=== PATIENT | male | born 1965 | race African-American/Black ===

== ENCOUNTER 2017-02-22 13:14 | Inpatient (IN) | payer OTHER ==
[2017-02-22 15:00] VITALS: BMI 53.5
--- NOTE | 2017-02-22 16:02 | HP ---
Admission [facility] - [facility] Chief Complaint: I need help to stop drinking . Allergies/Adverse Reactions: Allergies Allergy/AdvReac Type Severity Reaction Status Date / Time Tetanus Vaccines and Toxoid Allergy Severe Swelling Verified 02/22/17 15:28 History of Present Illness: 51 y/o obese m pt aox3 , ambulating , cooperative with exam. Exam Limitations: No Limitations - Ebola screening Have you traveled outside of the country in the last 21 days: No Have you had contact with anyone from an Ebola affected area: No Have you been sick,other than usual withdrawal symptoms: No Do you have a fever: No - Review of Systems Constitutional: Malaise, Night Sweats, Changes in sleep EENT: reports: Blurred Vision Respiratory: reports: No Symptoms reported Cardiac: reports: No Symptoms Reported GI: reports: No Symptoms Reported : reports: Frequency Musculoskeletal: reports: Back Pain, Muscle Pain Integumentary: reports: No Symptoms Reported Neuro: reports: Seizure, Tremors Endocrine: reports: No Symptoms Reported Hematology: reports: No Symptoms Reported Psychiatric: reports: Depressed Other Systems: Reviewed and Negative Patient History - Patient Medical History Hx Anemia: No Hx Asthma: Yes Hx Chronic Obstructive Pulmonary Disease (COPD): No Hx Cancer: No Hx Cardiac Disorders: No Hx Congestive Heart Failure: No Hx Hypertension: Yes Hx Hypercholesterolemia: No Hx Pacemaker: No HX Cerebrovascular Accident: No Hx Seizures: Yes (head trauma 25 yrs ago and had a seizures.) Hx Dementia: No Hx Diabetes: No Hx Gastrointestinal Disorders: No Hx Liver Disease: No Hx Genitourinary Disorders: No Hx Sexually Transmitted Disorders: No Hx Renal Disease (ESRD): No Hx Thyroid Disease: No Hx Human Immunodeficiency Virus (HIV): Yes (dx'ed 1996) Hx Hepatitis C: No Hx Depression: Yes Hx Suicide Attempt: No Hx Bipolar Disorder: No Hx Schizophrenia: No Other Medical History: gout - Patient Surgical History Past Surgical History: Yes Hx Abdominal Surgery: Yes (hernia surgeries x 2 ) Hx Orthopedic Surgery: Yes (fx R leg x 2 Sx for osteomelitis x2 R leg) Other Surgical History: left middle finger reattachment Anesthesia Reaction: Yes - PPD History Previous Implant?: Yes Documented Results: Positive w/o proof Implanted On Prior [facility] Admission?: No PPD to be Administered?: No - Reproductive History Patient is a Female of Child Bearing Age (11 -55 yrs old): No - Smoking Cessation Smoking history: Current some day smoker Have you smoked in the past 12 months: Yes Aproximately how many cigarettes per day: 5 Hx Chewing Tobacco Use: No Initiated information on smoking cessation: Yes 'Breaking Loose' booklet given: 02/22/17 - Substance & Tx. History Hx Alcohol Use: Yes Hx Substance Use: Yes Substance Use Type: Cocaine Hx Substance Use Treatment: Yes - Substances Abused Alcohol Route: Oral Frequency: Daily Amount used: 1 LITER VODKA/RUM/CHERRI/ 4 LOCOS Age of first use: 8 Date of Last Use: 02/22/17 Cocaine Route: Smoking Frequency: 1-3 times last 30 days Amount used: UNKNOWN Age of first use: 51 Date of Last Use: 02/21/17 Family Disease History - Family Disease History Family Disease History: Other: Mother (cirrhosis - ) Admission Physical Exam BHS - Vital Signs Vital Signs: Vital Signs - 24 hr 02/22/17 14:58 Temperature 98.4 F Pulse Rate 101 H Respiratory 18 Rate Blood Pressure 145/100 51 y/o morbidly obese pt anxious , ambulating , sweating but cooperative with exam. - Physical General Appearance: Yes: Appropriately Dressed, Obese, Sweating, Anxious HEENTM: Yes: EOMI, Hearing grossly Normal, Normocephalic, Normal Voice, MICHELL, Nasal Congestion Respiratory: Yes: Chest Non-Tender, Lungs Clear, Normal Breath Sounds, No Respiratory Distress Neck: Yes: Supple, Trachea in good position Breast: Yes: Within Normal Limits Cardiology: Yes: Regular Rhythm, Regular Rate, S1, S2 Abdominal: Yes: Non Tender, Flat, Soft, Increased Bowel Sounds, Surgical Scar ( well healed umbilical scars x 2) Genitourinary: Yes: Frequency Back: Yes: Decreased Range of Motion Musculoskeletal: Yes: Muscle Pain Extremities: Yes: Tremors Neurological: Yes: service advocate contact II-XII NML intact, Fully Oriented, Alert, Motor Strength 5/5, Normal Response Integumentary: Yes: Diaphoresis Lymphatic: Yes: Within Normal Limits - Diagnostic (1) Alcohol dependence with uncomplicated withdrawal Current Visit: Yes Status: Chronic (2) Cocaine abuse Current Visit: Yes Status: Acute (3) Morbid obesity Current Visit: Yes Status: Chronic (4) HIV (human immunodeficiency virus infection) Current Visit: Yes Status: Chronic (5) HTN (hypertension) Current Visit: Yes Status: Chronic Qualifiers: Hypertension type: essential hypertension Qualified Code(s): I10 - Essential (primary) hypertension (6) Sleep apnea Current Visit: Yes Status: Chronic Qualifiers: Sleep apnea type: unspecified type Qualified Code(s): G47.30 - Sleep apnea, unspecified (7) Gout Current Visit: Yes Status: Chronic Qualifiers: Gout site: unspecified site Cleared for Admission S - Detox or Rehab [facility] Level of Care: Medically Managed Detox Regimen/Protocol: Librium S Breath Alcohol Content Breath Alcohol Content: 0 Urine Drug Screen - Results Drug Screen Negative: No Urine Drug Screen Results: MARIA ELENA-Cocaine
[2017-02-22] MEDS ORDERED: P-EPHED 60MG/TRIPROLIDI 2.5MG TABLET PO PRN (16:16)
[2017-02-22] MEDS ORDERED: ACETAMINOPHEN 325 MG TABLET (FP) PO PRN (16:16)
[2017-02-22] MEDS ORDERED: LOPERAMIDE HCL 2 MG CAPSULE PO PRN (16:16)
[2017-02-22] MEDS ORDERED: diphenhydrAMINE HCL 50 MG CAPSULE PO PRN (16:16)
[2017-02-22] MEDS ORDERED: IBUPROFEN 400 MG TABLET (FP) PO PRN (16:16)
[2017-02-22] MEDS ORDERED: MAGNESIUM HYDROX 2400MG/30ML ORAL SUSPENSION 30 ML CUP PO PRN (16:16)
[2017-02-22] MEDS ORDERED: MAG HYDROX/AL HYDROX/SIMETH 30 ML UNIT-DOSE CUP PO PRN (16:16)
[2017-02-22] MEDS ORDERED: MAGNESIUM CITRATE 300 ML BOTTLE PO PRN (16:16)
[2017-02-22] MEDS ORDERED: guaiFENesin/D-METHORPHAN HB 10 ML UNIT-DOSE CUPS PO PRN (16:16)
[2017-02-22] MEDS ORDERED: MENTHOL/PHENOL 1 EACH UD MM PRN (16:16)
[2017-02-22] MEDS ORDERED: chlordiazePOXIDE HCL 25 MG CAPSULE PO PRN (16:16)
[2017-02-22] MEDS: chlordiazePOXIDE HCL 25 MG CAPSULE PO SCH ×2 (19:12→22:16)
[2017-02-22] MEDS ORDERED: NAPROXEN 500 MG TABLET (FP) PO SCH (22:00)
[2017-02-22] MEDS: THIAMINE HCL 100 MG TABLET (FP) PO SCH (22:15)
[2017-02-22 23:18] LABS: URINE APPEARANCE SLCLOUDY; URINE BILIRUBIN NEGATIVE (NEGATIVE); URINE COLOR DKYELLOW; URINE GLUCOSE (UA) NEGATIVE (NEGATIVE); URINE KETONE NEGATIVE (NEGATIVE); URINE NITRITE NEGATIVE (NEGATIVE); URINE UROBILINOGEN NEGATIVE E.U./dl (0.2-1.0)
[2017-02-22 23:24] LABS: URINE BLOOD 1+ (NEGATIVE); URINE LEUK ESTERASE 3+ (NEGATIVE); URINE PROTEIN 2+ (NEGATIVE)
[2017-02-22 23:28] LABS: URINE BACTERIA RARE /hpf (NONE SEEN); URINE HYALINE CAST 1 /lpf; URINE MUCUS RARE; URINE RBC 14 /hpf (0-3); URINE WBC 209 /hpf (3-5)
[2017-02-23] MEDS: chlordiazePOXIDE HCL 25 MG CAPSULE PO SCH ×4 (05:18→22:19)
[2017-02-23] MEDS: IBUPROFEN 600 MG TABLET (FP) PO PRN ×3 (07:45→22:20)
[2017-02-23] MEDS: CYCLOBENZAPRINE HCL 10 MG TABLET (FP) PO PRN ×3 (07:45→22:19)
[2017-02-23] MEDS ORDERED: BACITRACIN 0.9 GM PACKET ONE (08:20)
--- NOTE | 2017-02-23 09:29 | PN ---
BHS CIWA - CIWA Score Nausea/Vomitin Muscle Tremors: 3 Anxiety: 3 Agitation: 3 Paroxysmal Sweats: 1-Minimal Palms Moist Orientation: 0-Oriented Tacttile Disturbances: 1-Very Mild Itch/Numbness Auditory Disturbances: 1-Very Mild Visual Disturbances: 1-Very Mild Sensitivity Headache: 2-Mild CIWA-Ar Total Score: 18 BHS Progress Note (SOAP) Subjective: ALERT,IRRITABLE,ANXIOUS,INTERRUPTED SLEEP,TREMOR.RASH OF FACE Objective: 02/23/17 09:27 Vital Signs Temperature 96 F L 02/23/17 06:23 Pulse Rate 85 02/23/17 06:23 Respiratory Rate 18 02/23/17 06:23 Blood Pressure 153/96 02/23/17 06:23 O2 Sat by Pulse Oximetry (%) EKG SINUS TACHYCARDIA NO CHEST PAIN,NO SOB,NO DIZZINESS 02/23/17 09:28 LABS PENDING Assessment: 02/23/17 09:28 02/23/17 09:28 WITHDRAWAL SYMPTOM Plan: CONTINUE DETOX
[2017-02-23 10:11] LABS: MCH 28.4 pg (25.7-33.7); MCHC 32.9 g/dl (32.0-35.9); MEAN CELL VOLUME 86.4 fl (80-96); MEAN PLT VOLUME 10.4 fl (7.5-11.1); PLATELET COUNT 196 K/MM3 (134-434); RDW 14.6 % (11.9-15.9); WHITE BLOOD COUNT 6.9 K/mm3 (4.0-10.0)
[2017-02-23] MEDS: BENZOYL PEROXIDE 5% 60 GM GEL..GRAM. TP SCH (10:12)
[2017-02-23] MEDS: COLCHICINE 0.6 MG TABLET (FP) PO SCH (10:12)
[2017-02-23] MEDS: FUROSEMIDE 20 MG TABLET (FP) PO SCH (10:13)
[2017-02-23] MEDS: ALLOPURINOL 300 MG TABLET (FP) PO SCH (10:13)
[2017-02-23] MEDS: LOSARTAN POTASSIUM 50 MG TABLET (FP) PO SCH (10:13)
[2017-02-23] MEDS: BACITRACIN 30 GM TUBE TOPICAL OINTMENT TP SCH ×2 (10:13→22:19)
[2017-02-23] MEDS: NICOTINE 7 MG/24 HOURS TOPICAL PATCH TD SCH (10:13)
[2017-02-23] MEDS: PRENATAL VITAMINS W/ FOLIC ACID TABLET (FP) PO SCH (10:13)
[2017-02-23] MEDS: NIFEdipine E.R. 90 MG TABLET (FP) PO SCH (10:13)
[2017-02-23] MEDS: NICOTINE POLACRILEX 2 MG GUM BUC PRN ×2 (10:16→22:23)
[2017-02-23 10:26] LABS: ALBUMIN 3.6 g/dl (3.4-5.0); ALK PHOS 73 U/L (45-117); ANION GAP 13 (8-16); BILIRUBIN,TOTAL 0.6 mg/dL (0.2-1.0); CALCIUM 9.1 mg/dL (8.5-10.1); CO2 27 mmol/L (21-32); COCKROFT - GAULT 312.83; CREATININE 0.7 mg/dL (0.7-1.3); GLUCOSE,RANDOM 116 mg/dL (74-106); SGOT/AST 50 U/L (15-37); SGPT/ALT 65 U/L (12-78); TOT PROT 7.8 g/dl (6.4-8.2)
--- NOTE | 2017-02-23 12:48 | EKG ---
Test Reason : Blood Pressure : / mmHG Vent. Rate : 101 BPM Atrial Rate : 101 BPM P-R Int : 142 ms QRS Dur : 094 ms QT Int : 362 ms P-R-T Axes : 055 029 031 degrees QTc Int : 469 ms SINUS TACHYCARDIA POSSIBLE LEFT ATRIAL ENLARGEMENT BORDERLINE ECG NO PREVIOUS ECGS AVAILABLE Confirmed by CARTER CAMPOS, BRIANA ([id number]) on 02/23/2017 12:48:45 PM Referred By: Confirmed By:BRIANA MACHADO MD
--- NOTE | 2017-02-23 15:40 | CONSULT ---
[facility] Psychiatric Consult - Data Date of interview: 02/23/17 Admission source: [facility] Identifying data: First admission to [facility] for this 51 y/o AA male seeking detox treatment for alcohol and cocaine dependence.Patient is single without children,domiciled,unemployed (disabled) and supported on SSI benefits. Substance Abuse History: - Smoking Cessation. Smoking history: Current some day smoker. Have you smoked in the past 12 months: Yes. Aproximately how many cigarettes per day: 5. Hx Chewing Tobacco Use: No. Initiated information on smoking cessation: Yes. 'Breaking Loose' booklet given: 02/22/17. - Substance & Tx. History. Hx Alcohol Use: Yes. Hx Substance Use: Yes. Substance Use Type : Cocaine. Hx Substance Use Treatment: Yes. - Substances Abused. Alcohol. Route: Oral. Frequency: Daily. Amount used: 1 LITER VODKA/RUM/CHERRI/ 4 LOCOS. Age of first use: 8. Date of Last Use: 02/22/17. Cocaine. Route: Smoking. Frequency: 1-3 times last 30 days. Amount used: UNKNOWN. Age of first use: 51. Date of Last Use: 02/21/17. Confirmed by patient. Medical History: Hypertension,bronchial asthma,sleep apnea,seizure disorder ( head trauma),gout,HIV infection since 1996,past treatment for osteomyelitis ( right leg),herniorraphies (x2),orthosurgery for fracture of right leg and surgical reattachment of left middle finger.Morbid obesity. Psychiatric History: Patient admits to a history of one psychiatric hospitalization at [facility] in [facility] (2016).Diagnosed with MDD.Mr Carver denies taking psychotropic medications.No psychiatric OPD care.Patient denies suicide attempts. Physical/Sexual Abuse/Trauma History: Patient denies. Additional Comment: Urine Drug Screen Results: MARIA ELENA-Cocaine.Noted. Mental Status Exam - Mental Status Exam Alert and Oriented to: Time, Place, Person Cognitive Function: Grossly Intact Patient Appearance: Well Groomed (morbidly obese) Mood: Withdrawn (neutral) Affect: Appropriate, Normal Range Patient Behavior: Fatigued (feels sleepy), Cooperative Speech Pattern: Clear, Appropriate Voice Loudness: Normal Thought Process: Goal Oriented Thought Disorder: Not Present Hallucinations: Denies Suicidal Ideation: Denies Homicidal Ideation: Denies Insight/Judgement: Poor Sleep: Poorly, Difficulty falling asleep (patient reports poor sleep for past three days) Appetite: Good Gait/Station: Normal (observed walking on the unit) Psychiatric Findings - Problem List ([place] 1, 2,3) (1) Alcohol dependence with uncomplicated withdrawal Current Visit: Yes Status: Acute (2) Nicotine dependence Current Visit: Yes Status: Acute (3) Cocaine abuse Current Visit: Yes Status: Acute (4) Substance induced mood disorder Current Visit: Yes Status: Acute (5) Gout Current Visit: Yes Status: Chronic Qualifiers: Gout site: unspecified site (6) HIV (human immunodeficiency virus infection) Current Visit: Yes Status: Chronic (7) HTN (hypertension) Current Visit: Yes Status: Chronic Qualifiers: Hypertension type: essential hypertension Qualified Code(s): I10 - Essential (primary) hypertension (8) Sleep apnea Current Visit: Yes Status: Chronic Qualifiers: Sleep apnea type: unspecified type Qualified Code(s): G47.30 - Sleep apnea, unspecified (9) Insomnia Current Visit: Yes Status: Acute Qualifiers: Insomnia type: due to other mental disorder Qualified Code(s): F51.05 - Insomnia due to other mental disorder; F99 - Mental disorder, not otherwise specified - Initial Treatment Plan Initial Treatment Plan: Psychoeducation.Detoxification.Insomnia is addressed with benadryl at bedtime.Side effects/benefits discussed.Patient is in agreement with careplan.Observation.
[2017-02-23] MEDS: THIAMINE HCL 100 MG TABLET (FP) PO SCH (22:21)
[2017-02-23] MEDS: POTASSIUM CHLORIDE ORAL LIQUID 20 MEQ/15 ML PO SCH (22:53)
[2017-02-24] MEDS ORDERED: ALBUTEROL SO4 2.5/IPRATROPIUM 0.5 INH SOL 3 ML VIAL.NEB. NEB ONE (01:55)
[2017-02-24] MEDS: chlordiazePOXIDE HCL 25 MG CAPSULE PO SCH ×2 (06:09→10:15)
[2017-02-24] MEDS: IBUPROFEN 600 MG TABLET (FP) PO PRN ×2 (06:10→17:21)
[2017-02-24] MEDS: CYCLOBENZAPRINE HCL 10 MG TABLET (FP) PO PRN ×2 (06:10→22:20)
[2017-02-24] MEDS: POTASSIUM CHLORIDE ORAL LIQUID 20 MEQ/15 ML PO SCH ×2 (10:14→22:19)
[2017-02-24] MEDS: FUROSEMIDE 20 MG TABLET (FP) PO SCH (10:15)
[2017-02-24] MEDS: NIFEdipine E.R. 90 MG TABLET (FP) PO SCH (10:15)
[2017-02-24] MEDS: COLCHICINE 0.6 MG TABLET (FP) PO SCH (10:15)
[2017-02-24] MEDS: PRENATAL VITAMINS W/ FOLIC ACID TABLET (FP) PO SCH (10:16)
[2017-02-24] MEDS: LOSARTAN POTASSIUM 50 MG TABLET (FP) PO SCH (10:16)
[2017-02-24] MEDS: ALLOPURINOL 300 MG TABLET (FP) PO SCH (10:16)
[2017-02-24] MEDS: NICOTINE 7 MG/24 HOURS TOPICAL PATCH TD SCH (10:17)
[2017-02-24] MEDS: NICOTINE POLACRILEX 2 MG GUM BUC PRN (10:17)
[2017-02-24] MEDS: BENZOYL PEROXIDE 5% 60 GM GEL..GRAM. TP SCH (10:37)
[2017-02-24] MEDS: BACITRACIN 30 GM TUBE TOPICAL OINTMENT TP SCH ×2 (10:37→22:18)
--- NOTE | 2017-02-24 12:38 | PN ---
S CIWA - CIWA Score Nausea/Vomitin Muscle Tremors: 3 Anxiety: 1-Mildly Anxious Agitation: 3 Paroxysmal Sweats: 3 Orientation: 1-Uncertain about Date Tacttile Disturbances: 2-Mild Itch/Numbness/Burn Auditory Disturbances: 2-Mild Harshness/Frighten Visual Disturbances: 0-None Headache: 0-None Present CIWA-Ar Total Score: 18 BHS Progress Note (SOAP) Subjective: Nausea, body Aches, Sweating, Tremors, interrupted sleep. Objective: PT. A & OX 2 (DISORIENTED ABOUT DAY /DATE). PT. OBSERVED AMBULATING ON UNIT. 02/24/17 12:36 Vital Signs Temperature 96.8 F L 02/24/17 09:18 Pulse Rate 95 H 02/24/17 09:18 Respiratory Rate 20 02/24/17 09:18 Blood Pressure 123/78 02/24/17 09:18 O2 Sat by Pulse Oximetry (%) Laboratory Last Values WBC 6.9 K/mm3 (4.0-10.0) 02/23/17 07:00 RBC 4.78 M/mm3 (4.00-5.60) 02/23/17 07:00 Hgb 13.6 GM/dL (11.7-16.9) 02/23/17 07:00 Hct 41.3 % (35.4-49) 02/23/17 07:00 MCV 86.4 fl (80-96) 02/23/17 07:00 MCHC 32.9 g/dl (32.0-35.9) 02/23/17 07:00 RDW 14.6 % (11.9-15.9) 02/23/17 07:00 Plt Count 196 K/MM3 (134-434) 02/23/17 07:00 MPV 10.4 fl (7.5-11.1) 02/23/17 07:00 Sodium 139 mmol/L (136-145) 02/23/17 07:00 Potassium 3.3 mmol/L (3.5-5.1) L 02/23/17 07:00 Chloride 99 mmol/L (98-107) 02/23/17 07:00 Carbon Dioxide 27 mmol/L (21-32) 02/23/17 07:00 Anion Gap 13 (8-16) 02/23/17 07:00 BUN 13 mg/dL (7-18) 02/23/17 07:00 Creatinine 0.7 mg/dL (0.7-1.3) 02/23/17 07:00 Creat Clearance w eGFR > 60 (>60) 02/23/17 07:00 Random Glucose 116 mg/dL (74-106) H 02/23/17 07:00 Calcium 9.1 mg/dL (8.5-10.1) 02/23/17 07:00 Total Bilirubin 0.6 mg/dL (0.2-1.0) 02/23/17 07:00 AST 50 U/L (15-37) H 02/23/17 07:00 ALT 65 U/L (12-78) 02/23/17 07:00 Alkaline Phosphatase 73 U/L (45-117) 02/23/17 07:00 Total Protein 7.8 g/dl (6.4-8.2) 02/23/17 07:00 Albumin 3.6 g/dl (3.4-5.0) 02/23/17 07:00 Urine Color Dkyellow 02/22/17 23:00 Urine Appearance Slcloudy 02/22/17 23:00 Urine pH 6.0 (5.0-8.0) 02/22/17 23:00 Ur Specific [place] 1.020 (1.005-1.025) 02/22/17 23:00 Urine Protein 2+ (NEGATIVE) H 02/22/17 23:00 Urine Glucose (UA) Negative (NEGATIVE) 02/22/17 23:00 Urine Ketones Negative (NEGATIVE) 02/22/17 23:00 Urine Blood 1+ (NEGATIVE) H 02/22/17 23:00 Urine Nitrite Negative (NEGATIVE) 02/22/17 23:00 Urine Bilirubin Negative (NEGATIVE) 02/22/17 23:00 Urine Urobilinogen Negative E.U./dl (0.2-1.0) 02/22/17 23:00 Ur Leukocyte Esterase 3+ (NEGATIVE) H 02/22/17 23:00 Urine RBC 14 /hpf (0-3) 02/22/17 23:00 Urine WBC 209 /hpf (3-5) 02/22/17 23:00 Ur Epithelial Cells Few /hpf (FEW) 02/22/17 23:00 Urine Bacteria Rare /hpf (NONE SEEN) 02/22/17 23:00 Hyaline Casts 1 /lpf 02/22/17 23:00 Urine Mucus Rare 02/22/17 23:00 RPR Titer Nonreactive (NONREACTIVE) 02/23/17 07:00 LABS NOTED. Assessment: 02/24/17 12:38 WITHDRAWAL SYMPTOMS. 02/24/17 12:40 Plan: CONTINUE DETOX. ADVISED PATIENT TO FOLLOW-UP WITH NAVIGATION OFFICER AFTER DISCHARGE FROM DETOX FOR GENERAL MEDICAL ASSESSMENT AND FOR ABNORMAL ADMISSION LAB VALUES.
[2017-02-24] MEDS: chlordiazePOXIDE 5 MG CAPSULE PO SCH ×2 (17:19→22:18)
[2017-02-24] MEDS: THIAMINE HCL 100 MG TABLET (FP) PO SCH (22:18)
[2017-02-24] MEDS: hydrOXYzine PAMOATE 25 MG CAPSULE (FP) PO PRN (22:22)
[2017-02-24] MEDS ORDERED: ALBUTEROL SO4 2.5/IPRATROPIUM 0.5 INH SOL 3 ML VIAL.NEB. NEB PRN (23:43)
[2017-02-25] MEDS: chlordiazePOXIDE 5 MG CAPSULE PO SCH ×2 (06:53→10:25)
[2017-02-25] MEDS: BENZOYL PEROXIDE 5% 60 GM GEL..GRAM. TP SCH (10:26)
[2017-02-25] MEDS: COLCHICINE 0.6 MG TABLET (FP) PO SCH (10:26)
[2017-02-25] MEDS: FUROSEMIDE 20 MG TABLET (FP) PO SCH (10:26)
[2017-02-25] MEDS: ALLOPURINOL 300 MG TABLET (FP) PO SCH (10:26)
[2017-02-25] MEDS: PRENATAL VITAMINS W/ FOLIC ACID TABLET (FP) PO SCH (10:26)
[2017-02-25] MEDS: NICOTINE 7 MG/24 HOURS TOPICAL PATCH TD SCH (10:26)
[2017-02-25] MEDS: POTASSIUM CHLORIDE ORAL LIQUID 20 MEQ/15 ML PO SCH ×2 (10:26→22:18)
[2017-02-25] MEDS: NIFEdipine E.R. 90 MG TABLET (FP) PO SCH (10:26)
[2017-02-25] MEDS: LOSARTAN POTASSIUM 50 MG TABLET (FP) PO SCH (10:26)
[2017-02-25] MEDS: BACITRACIN 30 GM TUBE TOPICAL OINTMENT TP SCH ×2 (10:26→22:19)
[2017-02-25 10:33] LABS: ALBUMIN 3.6 g/dl (3.4-5.0); ALK PHOS 87 U/L (45-117); ANION GAP 7 (8-16); BILIRUBIN,TOTAL 0.3 mg/dL (0.2-1.0); CALCIUM 9.4 mg/dL (8.5-10.1); CO2 31 mmol/L (21-32); COCKROFT - GAULT 312.83; CREATININE 0.7 mg/dL (0.7-1.3); GLUCOSE,RANDOM 146 mg/dL (74-106); SGOT/AST 46 U/L (15-37); SGPT/ALT 83 U/L (12-78); TOT PROT 8.1 g/dl (6.4-8.2)
--- NOTE | 2017-02-25 13:05 | PN ---
S Progress Note (SOAP) Subjective: Tremors, Fatigue, Sweating, Body aches, Interrupted sleep. Objective: PT. A & O X 2 (DISORIENTED ABOUT DAY / DATE). PATIENT DENIES CHEST PAIN. 02/25/17 13:02 Vital Signs Temperature 96.2 F L 02/25/17 10:05 Pulse Rate 91 H 02/25/17 10:05 Respiratory Rate 18 02/25/17 10:05 Blood Pressure 152/93 02/25/17 10:05 O2 Sat by Pulse Oximetry (%) Laboratory Last Values WBC 6.9 K/mm3 (4.0-10.0) 02/23/17 07:00 RBC 4.78 M/mm3 (4.00-5.60) 02/23/17 07:00 Hgb 13.6 GM/dL (11.7-16.9) 02/23/17 07:00 Hct 41.3 % (35.4-49) 02/23/17 07:00 MCV 86.4 fl (80-96) 02/23/17 07:00 MCHC 32.9 g/dl (32.0-35.9) 02/23/17 07:00 RDW 14.6 % (11.9-15.9) 02/23/17 07:00 Plt Count 196 K/MM3 (134-434) 02/23/17 07:00 MPV 10.4 fl (7.5-11.1) 02/23/17 07:00 Sodium 140 mmol/L (136-145) 02/25/17 07:00 Potassium 4.4 mmol/L (3.5-5.1) D 02/25/17 07:00 Chloride 102 mmol/L (98-107) 02/25/17 07:00 Carbon Dioxide 31 mmol/L (21-32) 02/25/17 07:00 Anion Gap 7 (8-16) L 02/25/17 07:00 BUN 6 mg/dL (7-18) L D 02/25/17 07:00 Creatinine 0.7 mg/dL (0.7-1.3) 02/25/17 07:00 Creat Clearance w eGFR > 60 (>60) 02/25/17 07:00 Random Glucose 146 mg/dL (74-106) H D 02/25/17 07:00 Calcium 9.4 mg/dL (8.5-10.1) 02/25/17 07:00 Total Bilirubin 0.3 mg/dL (0.2-1.0) D 02/25/17 07:00 AST 46 U/L (15-37) H 02/25/17 07:00 ALT 83 U/L (12-78) H D 02/25/17 07:00 Alkaline Phosphatase 87 U/L (45-117) 02/25/17 07:00 Total Protein 8.1 g/dl (6.4-8.2) 02/25/17 07:00 Albumin 3.6 g/dl (3.4-5.0) 02/25/17 07:00 Urine Color Dkyellow 02/22/17 23:00 Urine Appearance Slcloudy 02/22/17 23:00 Urine pH 6.0 (5.0-8.0) 02/22/17 23:00 Ur Specific [place] 1.020 (1.005-1.025) 02/22/17 23:00 Urine Protein 2+ (NEGATIVE) H 02/22/17 23:00 Urine Glucose (UA) Negative (NEGATIVE) 02/22/17 23:00 Urine Ketones Negative (NEGATIVE) 02/22/17 23:00 Urine Blood 1+ (NEGATIVE) H 02/22/17 23:00 Urine Nitrite Negative (NEGATIVE) 02/22/17 23:00 Urine Bilirubin Negative (NEGATIVE) 02/22/17 23:00 Urine Urobilinogen Negative E.U./dl (0.2-1.0) 02/22/17 23:00 Ur Leukocyte Esterase 3+ (NEGATIVE) H 02/22/17 23:00 Urine RBC 14 /hpf (0-3) 02/22/17 23:00 Urine WBC 209 /hpf (3-5) 02/22/17 23:00 Ur Epithelial Cells Few /hpf (FEW) 02/22/17 23:00 Urine Bacteria Rare /hpf (NONE SEEN) 02/22/17 23:00 Hyaline Casts 1 /lpf 02/22/17 23:00 Urine Mucus Rare 02/22/17 23:00 RPR Titer Nonreactive (NONREACTIVE) 02/23/17 07:00 LABS NOTED. 02/25/17 13:04 Assessment: 02/25/17 13:04 WITHDRAWAL SYMPTOMS. Plan: CONTINUE DETOX. PATIENT ADVISED TO FOLLOW-UP WITH FISH NET STRINGER AFTER DISCHARGE FROM DETOX FOR GENERAL MEDICAL ASSESSMENT AND FOR ABNORMAL ADMISSION LAB VALUES.
[2017-02-25] MEDS ORDERED: WITCH HAZEL 50% (TUCKS) 40 PAD/JAR PAD TP PRN (15:30)
[2017-02-25] MEDS ORDERED: HYDROCORTISONE 2.5% TOPICAL CREAM 30 GM TUBE PR SCH (15:45)
--- NOTE | 2017-02-25 17:05 | PN ---
[facility] Progress Note Note: Pt. reporting discomfort in anal area since having a bowel movement last night. Pt. also reports a small amount of blood (on toilet paper) after having the bowel movement. Pt. reports history of anal fissure for which he was previously treated with topical Proctosol. Patient denies abdominal pain and he denies any other unusual symptoms at this time. VS and CBC reviewed. No redness, lesions, unusual discharge, or signs of infection noted upon visualization of external anal and buttock area. Pt. noted that he was previously advised to use topical Bacitracin by [facility] admitting medical provider. However, pt. reports that Bacitracin has been ineffective for relief of anal discomfort. Anusol-HC and Tucks Medicated pads prescribed for symptom relief. Pt. advised to follow-up with Primary Care Medical Provider for further evaluation of condition after discharge from Detox. Pt. verbalized understanding of recommendation. Satish Kirk NP
[2017-02-25] MEDS: chlordiazePOXIDE HCL 10 MG CAPSULE PO SCH ×2 (17:36→22:17)
[2017-02-25] MEDS: NICOTINE POLACRILEX 2 MG GUM BUC PRN ×2 (17:39→22:22)
[2017-02-25] MEDS: IBUPROFEN 600 MG TABLET (FP) PO PRN ×2 (17:39→23:29)
[2017-02-25] MEDS ORDERED: cloNIDine HCL 0.1 MG TABLET PO PRN (22:03)
[2017-02-25 22:10] VITALS: BP 153/98; PULSE 94; TEMP 98.4
[2017-02-25] MEDS: CYCLOBENZAPRINE HCL 10 MG TABLET (FP) PO PRN (22:17)
[2017-02-25] MEDS: THIAMINE HCL 100 MG TABLET (FP) PO SCH (22:17)
[2017-02-25] MEDS: hydrOXYzine PAMOATE 25 MG CAPSULE (FP) PO PRN (22:20)
[2017-02-26] MEDS: chlordiazePOXIDE HCL 10 MG CAPSULE PO SCH (06:16)
--- NOTE | 2017-02-26 13:52 | DS ---
[facility] Detox Discharge Summary Admission Date: 02/22/17 Discharge Date: 02/26/17 - History Present History: Alcohol Dependence Additional Comments: ADVISED PATIENT TO FOLLOW-UP WITH [facility]EN[facility]SE [facility]OWER AFTER DISCHARGE FROM DETOX FOR GENERAL MEDICAL ASSESSMENT AND FOR ABNORMAL ADMISSION LAB VALUES. Pertinent Past History: Asthma, Hx. of Seizures (due to previous Head Trauma), HIV +, Sleep Apnea, Gout. - Physical Exam Results Vital Signs: Vital Signs Temperature 98.4 F 02/25/17 22:09 Pulse Rate 94 H 02/25/17 22:09 Respiratory Rate 20 02/26/17 03:30 Blood Pressure 153/98 02/25/17 22:09 O2 Sat by Pulse Oximetry (%) Pertinent Admission Physical Exam Findings: WITHDRAWAL SYMPTOMS. Laboratory Last Values WBC 6.9 K/mm3 (4.0-10.0) 02/23/17 07:00 RBC 4.78 M/mm3 (4.00-5.60) 02/23/17 07:00 Hgb 13.6 GM/dL (11.7-16.9) 02/23/17 07:00 Hct 41.3 % (35.4-49) 02/23/17 07:00 MCV 86.4 fl (80-96) 02/23/17 07:00 MCHC 32.9 g/dl (32.0-35.9) 02/23/17 07:00 RDW 14.6 % (11.9-15.9) 02/23/17 07:00 Plt Count 196 K/MM3 (134-434) 02/23/17 07:00 MPV 10.4 fl (7.5-11.1) 02/23/17 07:00 Sodium 140 mmol/L (136-145) 02/25/17 07:00 Potassium 4.4 mmol/L (3.5-5.1) D 02/25/17 07:00 Chloride 102 mmol/L (98-107) 02/25/17 07:00 Carbon Dioxide 31 mmol/L (21-32) 02/25/17 07:00 Anion Gap 7 (8-16) L 02/25/17 07:00 BUN 6 mg/dL (7-18) L D 02/25/17 07:00 Creatinine 0.7 mg/dL (0.7-1.3) 02/25/17 07:00 Creat Clearance w eGFR > 60 (>60) 02/25/17 07:00 Random Glucose 146 mg/dL (74-106) H D 02/25/17 07:00 Calcium 9.4 mg/dL (8.5-10.1) 02/25/17 07:00 Total Bilirubin 0.3 mg/dL (0.2-1.0) D 02/25/17 07:00 AST 46 U/L (15-37) H 02/25/17 07:00 ALT 83 U/L (12-78) H D 02/25/17 07:00 Alkaline Phosphatase 87 U/L (45-117) 02/25/17 07:00 Total Protein 8.1 g/dl (6.4-8.2) 02/25/17 07:00 Albumin 3.6 g/dl (3.4-5.0) 02/25/17 07:00 Urine Color Dkyellow 02/22/17 23:00 Urine Appearance Slcloudy 02/22/17 23:00 Urine pH 6.0 (5.0-8.0) 02/22/17 23:00 Ur Specific [place] 1.020 (1.005-1.025) 02/22/17 23:00 Urine Protein 2+ (NEGATIVE) H 02/22/17 23:00 Urine Glucose (UA) Negative (NEGATIVE) 02/22/17 23:00 Urine Ketones Negative (NEGATIVE) 02/22/17 23:00 Urine Blood 1+ (NEGATIVE) H 02/22/17 23:00 Urine Nitrite Negative (NEGATIVE) 02/22/17 23:00 Urine Bilirubin Negative (NEGATIVE) 02/22/17 23:00 Urine Urobilinogen Negative E.U./dl (0.2-1.0) 02/22/17 23:00 Ur Leukocyte Esterase 3+ (NEGATIVE) H 02/22/17 23:00 Urine RBC 14 /hpf (0-3) 02/22/17 23:00 Urine WBC 209 /hpf (3-5) 02/22/17 23:00 Ur Epithelial Cells Few /hpf (FEW) 02/22/17 23:00 Urine Bacteria Rare /hpf (NONE SEEN) 02/22/17 23:00 Hyaline Casts 1 /lpf 02/22/17 23:00 Urine Mucus Rare 02/22/17 23:00 RPR Titer Nonreactive (NONREACTIVE) 02/23/17 07:00 LABS NOTED. - Treatment Hospital Course: Detox Protocol Followed, Detoxed Safely, Responded well, Discharged Condition Good Patient has Accepted a Rehab Referral to: NO - PT. ELECTING TO GO HOME. WILL PURSUE REHAB AT LATER DATE. - Medication Discharge Medications: Ambulatory Orders Allopurinol 300 mg PO DAILY 02/22/17 Colchicine [Colcrys -] 0.6 mg PO DAILY 02/22/17 Furosemide [Lasix -] 20 mg PO DAILY 02/22/17 Losartan/Hydrochlorothiazide [Losartan-Hctz 100-25 mg Tab] 1 each PO DAILY 02/22 Naproxen [Naprosyn -] 500 mg PO BID 02/22/17 Nifedipine ER [Procardia Xl -] 90 mg PO DAILY 02/22/17 Tizanidine HCl [Zanaflex (Nf)] 4 mg PO QID 02/22/17 - Diagnosis (1) Alcohol dependence with uncomplicated withdrawal Status: Acute (2) Cocaine abuse Status: Acute (3) Insomnia Status: Chronic Qualifiers: Insomnia type: due to other mental disorder Qualified Code(s): F51.05 - Insomnia due to other mental disorder; F99 - Mental disorder, not otherwise specified (4) Nicotine dependence Status: Chronic Qualifiers: Nicotine product type: cigarettes Substance use status: uncomplicated Qualified Code(s): F17.210 - Nicotine dependence, cigarettes, uncomplicated (5) Substance induced mood disorder Status: Acute (6) Gout Status: Chronic Qualifiers: Gout site: unspecified site Chronicity: chronic (7) HIV (human immunodeficiency virus infection) Status: Chronic (8) HTN (hypertension) Status: Chronic Qualifiers: Hypertension type: essential hypertension Qualified Code(s): I10 - Essential (primary) hypertension (9) Morbid obesity Status: Chronic Qualifiers: Obesity type: unspecified obesity type Qualified Code(s): E66.01 - Morbid (severe) obesity due to excess calories (10) Sleep apnea Status: Chronic Qualifiers: Sleep apnea type: unspecified type Qualified Code(s): G47.30 - Sleep apnea, unspecified - AMA Did Patient Leave Against Medical Advice: No
== END 2017-02-26 09:41 | disposition home or self-care (01) | DRG 774 ==
LOC: YASAS 13:14 → Y3N 16:43
PROVIDERS: ADMIT Internal Medicine Addiction Medicine; ATTEND Internal Medicine Addiction Medicine
PROC: HZ2ZZZZ Detoxification Services for Substance Abuse Treatment (ICD-10-PCS; principal; 2017-02-26)
DX: F10.230 Alcohol dependence with withdrawal, uncomplicated (principal); F14.10 Cocaine abuse, uncomplicated; F17.210 Nicotine dependence, cigarettes, uncomplicated; F19.24 Other psychoactive substance dependence with psychoactive substance-induced mood disorder; Z21 Asymptomatic human immunodeficiency virus [HIV] infection status; I10 Essential (primary) hypertension; G47.30 Sleep apnea, unspecified; F51.05 Insomnia due to other mental disorder; M10.9 Gout, unspecified; E66.01 Morbid (severe) obesity due to excess calories; Z68.43 Body mass index [BMI] 50.0-59.9, adult
CPT/HCPCS: 36415; 71020-TC; 80053; 81003; 81015; 85027; 86593; 93005; 93010; 94640

== ENCOUNTER 2017-02-28 11:42 | Inpatient (IN) | payer OTHER ==
[2017-02-28] MEDS ORDERED: MAGNESIUM HYDROX 2400MG/30ML ORAL SUSPENSION 30 ML CUP PO PRN (18:00)
[2017-02-28] MEDS ORDERED: MENTHOL/PHENOL 1 EACH UD MM PRN (18:00)
[2017-02-28] MEDS ORDERED: IBUPROFEN 400 MG TABLET (FP) PO PRN (18:00)
[2017-02-28] MEDS ORDERED: LOPERAMIDE HCL 2 MG CAPSULE PO PRN (18:00)
[2017-02-28] MEDS ORDERED: P-EPHED 60MG/TRIPROLIDI 2.5MG TABLET PO PRN (18:00)
[2017-02-28] MEDS ORDERED: MAGNESIUM CITRATE 300 ML BOTTLE PO PRN (18:00)
--- NOTE | 2017-02-28 18:00 | HP ---
[facility] Rehab Assess/Revision - Admission History Admitted to Rehab from: [facility] (PT COMPLETED DETOX ON 3 02/22/17 TO ) Date of Admission to Rehab: 02/28/17 - Vital signs Vital Signs: Vital Signs Period Temp Pulse Resp BP Sys/Angulo Pulse Ox Last 24 Hr 97.5 F 76 20 147/94 - Findings Detox History & Physical reviewed: Yes Concur with findings: Yes Comments/Additional Findings: PT IS ALERT O X 3. NAD. DISCUSSED WITH MEDICAL ATTENDING MD AND PT CLEARED FOR REHAB ADMISSION. ADDENDUM: PT HAS HIS OWN CPAP MACHINE.
[2017-02-28] MEDS: THIAMINE HCL 100 MG TABLET (FP) PO SCH (22:03)
[2017-02-28] MEDS: diphenhydrAMINE HCL 50 MG CAPSULE PO PRN (22:04)
[2017-02-28 22:14] LABS: URINE APPEARANCE CLEAR; URINE BILIRUBIN NEGATIVE (NEGATIVE); URINE BLOOD NEGATIVE (NEGATIVE); URINE COLOR LTYELLOW; URINE GLUCOSE (UA) NEGATIVE (NEGATIVE); URINE KETONE NEGATIVE (NEGATIVE); URINE LEUK ESTERASE TRACE (NEGATIVE); URINE NITRITE NEGATIVE (NEGATIVE); URINE PROTEIN NEGATIVE (NEGATIVE); URINE UROBILINOGEN NEGATIVE E.U./dl (0.2-1.0)
[2017-02-28 22:23] LABS: URINE RBC 3 /hpf (0-3); URINE WBC 3 /hpf (3-5)
[2017-03-01] MEDS ORDERED: PATIENT'S OWN MEDICATION (NON-FORMULARY) (Losartan/Hydrochlorothiazide [Losartan-Hctz 100- PO SCH (10:00)
[2017-03-01] MEDS: NIFEdipine E.R. 90 MG TABLET (FP) PO SCH (11:02)
[2017-03-01] MEDS: PRENATAL VITAMINS W/ FOLIC ACID TABLET (FP) PO SCH (11:02)
[2017-03-01] MEDS: FUROSEMIDE 20 MG TABLET (FP) PO SCH (11:02)
[2017-03-01] MEDS: ALLOPURINOL 300 MG TABLET (FP) PO SCH (11:02)
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
[2017-03-01] MEDS ORDERED: TIZANIDINE HCL PO SCH (12:30)
[2017-03-01] MEDS: NICOTINE POLACRILEX 2 MG GUM BUC PRN ×2 (13:04→21:39)
[2017-03-01] MEDS: TIZANIDINE HCL PO SCH ×2 (15:29→21:36)
[2017-03-01] MEDS: HYDROCHLOROTHIAZIDE 25 MG TABLET (FP) PO SCH (17:00)
[2017-03-01] MEDS: LOSARTAN POTASSIUM 50 MG TABLET (FP) PO SCH (17:00)
[2017-03-01] MEDS: THIAMINE HCL 100 MG TABLET (FP) PO SCH (21:36)
[2017-03-01] MEDS: IBUPROFEN 400 MG TABLET (FP) PO PRN (21:38)
[2017-03-01] MEDS: diphenhydrAMINE HCL 50 MG CAPSULE PO PRN (21:38)
[2017-03-01] MEDS: ACETAMINOPHEN 325 MG TABLET (FP) PO PRN (23:37)
[2017-03-02] MEDS: TIZANIDINE HCL PO SCH ×4 (03:48→21:39)
[2017-03-02] MEDS: FUROSEMIDE 20 MG TABLET (FP) PO SCH (10:31)
[2017-03-02] MEDS: NIFEdipine E.R. 90 MG TABLET (FP) PO SCH (10:31)
[2017-03-02] MEDS: HYDROCHLOROTHIAZIDE 25 MG TABLET (FP) PO SCH (10:31)
[2017-03-02] MEDS: PRENATAL VITAMINS W/ FOLIC ACID TABLET (FP) PO SCH (10:31)
[2017-03-02] MEDS: ALLOPURINOL 300 MG TABLET (FP) PO SCH (10:31)
[2017-03-02] MEDS: LOSARTAN POTASSIUM 50 MG TABLET (FP) PO SCH (10:32)
[2017-03-02] MEDS: IBUPROFEN 400 MG TABLET (FP) PO PRN ×2 (10:34→16:46)
[2017-03-02] MEDS: NICOTINE POLACRILEX 2 MG GUM BUC PRN ×2 (10:35→21:44)
[2017-03-02] MEDS: THIAMINE HCL 100 MG TABLET (FP) PO SCH (21:39)
[2017-03-02] MEDS: ACETAMINOPHEN 325 MG TABLET (FP) PO PRN (21:42)
[2017-03-02] MEDS: diphenhydrAMINE HCL 50 MG CAPSULE PO PRN (21:54)
[2017-03-03] MEDS: TIZANIDINE HCL PO SCH ×5 (03:27→21:49)
[2017-03-03] MEDS: ACETAMINOPHEN 325 MG TABLET (FP) PO PRN (08:47)
[2017-03-03] MEDS: IBUPROFEN 400 MG TABLET (FP) PO PRN ×2 (08:48→21:52)
[2017-03-03] MEDS: NICOTINE POLACRILEX 2 MG GUM BUC PRN (08:51)
[2017-03-03] MEDS: LOSARTAN POTASSIUM 50 MG TABLET (FP) PO SCH (09:14)
[2017-03-03] MEDS: PRENATAL VITAMINS W/ FOLIC ACID TABLET (FP) PO SCH (09:14)
[2017-03-03] MEDS: FUROSEMIDE 20 MG TABLET (FP) PO SCH (09:14)
[2017-03-03] MEDS: ALLOPURINOL 300 MG TABLET (FP) PO SCH (09:14)
[2017-03-03] MEDS: HYDROCHLOROTHIAZIDE 25 MG TABLET (FP) PO SCH (09:14)
[2017-03-03] MEDS: NIFEdipine E.R. 90 MG TABLET (FP) PO SCH (09:15)
[2017-03-03] MEDS: HYDROCORTISONE 2.5% TOPICAL CREAM 30 GM TUBE PR SCH (21:49)
[2017-03-03] MEDS: THIAMINE HCL 100 MG TABLET (FP) PO SCH (21:49)
[2017-03-03] MEDS: diphenhydrAMINE HCL 50 MG CAPSULE PO PRN (21:50)
[2017-03-04] MEDS: NIFEdipine E.R. 90 MG TABLET (FP) PO SCH (10:28)
[2017-03-04] MEDS: LOSARTAN POTASSIUM 50 MG TABLET (FP) PO SCH (10:28)
[2017-03-04] MEDS: HYDROCHLOROTHIAZIDE 25 MG TABLET (FP) PO SCH (10:28)
[2017-03-04] MEDS: PRENATAL VITAMINS W/ FOLIC ACID TABLET (FP) PO SCH (10:28)
[2017-03-04] MEDS: FUROSEMIDE 20 MG TABLET (FP) PO SCH (10:28)
[2017-03-04] MEDS: ALLOPURINOL 300 MG TABLET (FP) PO SCH (10:28)
[2017-03-04] MEDS: HYDROCORTISONE 2.5% TOPICAL CREAM 30 GM TUBE PR SCH ×2 (10:28→21:50)
[2017-03-04] MEDS: TIZANIDINE HCL PO SCH ×4 (10:29→21:49)
[2017-03-04] MEDS: ACETAMINOPHEN 325 MG TABLET (FP) PO PRN ×2 (10:31→21:51)
[2017-03-04] MEDS: IBUPROFEN 400 MG TABLET (FP) PO PRN ×2 (10:32→21:51)
[2017-03-04] MEDS: THIAMINE HCL 100 MG TABLET (FP) PO SCH (21:49)
[2017-03-04] MEDS: diphenhydrAMINE HCL 50 MG CAPSULE PO PRN (21:50)
[2017-03-04] MEDS: NICOTINE POLACRILEX 2 MG GUM BUC PRN (21:53)
[2017-03-05] MEDS: IBUPROFEN 400 MG TABLET (FP) PO PRN (06:57)
[2017-03-05] MEDS: ACETAMINOPHEN 325 MG TABLET (FP) PO PRN (06:57)
[2017-03-05] MEDS: FUROSEMIDE 20 MG TABLET (FP) PO SCH (10:24)
[2017-03-05] MEDS: HYDROCHLOROTHIAZIDE 25 MG TABLET (FP) PO SCH (10:24)
[2017-03-05] MEDS: LOSARTAN POTASSIUM 50 MG TABLET (FP) PO SCH (10:24)
[2017-03-05] MEDS: NIFEdipine E.R. 90 MG TABLET (FP) PO SCH (10:24)
[2017-03-05] MEDS: ALLOPURINOL 300 MG TABLET (FP) PO SCH (10:24)
[2017-03-05] MEDS: PRENATAL VITAMINS W/ FOLIC ACID TABLET (FP) PO SCH (10:24)
[2017-03-05] MEDS: HYDROCORTISONE 2.5% TOPICAL CREAM 30 GM TUBE PR SCH ×2 (10:25→22:04)
[2017-03-05] MEDS: TIZANIDINE HCL PO SCH ×4 (10:25→22:04)
[2017-03-05] MEDS: NICOTINE POLACRILEX 2 MG GUM BUC PRN ×2 (10:27→22:06)
[2017-03-05] MEDS: THIAMINE HCL 100 MG TABLET (FP) PO SCH (22:04)
[2017-03-05] MEDS: diphenhydrAMINE HCL 50 MG CAPSULE PO PRN (22:06)
[2017-03-06] MEDS: IBUPROFEN 400 MG TABLET (FP) PO PRN ×3 (05:38→21:55)
[2017-03-06] MEDS: ACETAMINOPHEN 325 MG TABLET (FP) PO PRN ×2 (06:35→11:13)
[2017-03-06] MEDS: MAG HYDROX/AL HYDROX/SIMETH 30 ML UNIT-DOSE CUP PO PRN (09:05)
[2017-03-06] MEDS: LOSARTAN POTASSIUM 50 MG TABLET (FP) PO SCH (10:31)
[2017-03-06] MEDS: TIZANIDINE HCL PO SCH ×4 (10:31→21:52)
[2017-03-06] MEDS: PRENATAL VITAMINS W/ FOLIC ACID TABLET (FP) PO SCH (10:31)
[2017-03-06] MEDS: HYDROCHLOROTHIAZIDE 25 MG TABLET (FP) PO SCH (10:31)
[2017-03-06] MEDS: FUROSEMIDE 20 MG TABLET (FP) PO SCH (10:31)
[2017-03-06] MEDS: ALLOPURINOL 300 MG TABLET (FP) PO SCH (10:31)
[2017-03-06] MEDS: NIFEdipine E.R. 90 MG TABLET (FP) PO SCH (10:31)
[2017-03-06] MEDS: HYDROCORTISONE 2.5% TOPICAL CREAM 30 GM TUBE PR SCH ×2 (10:32→21:53)
[2017-03-06] MEDS: NICOTINE POLACRILEX 2 MG GUM BUC PRN ×2 (10:33→13:53)
[2017-03-06] MEDS: THIAMINE HCL 100 MG TABLET (FP) PO SCH (21:52)
[2017-03-06] MEDS: diphenhydrAMINE HCL 50 MG CAPSULE PO PRN (21:56)
[2017-03-07] MEDS: guaiFENesin/D-METHORPHAN HB 10 ML UNIT-DOSE CUPS PO PRN (06:41)
[2017-03-07] MEDS: IBUPROFEN 400 MG TABLET (FP) PO PRN ×3 (07:04→23:06)
[2017-03-07] MEDS: ALLOPURINOL 300 MG TABLET (FP) PO SCH (10:29)
[2017-03-07] MEDS: FUROSEMIDE 20 MG TABLET (FP) PO SCH (10:29)
[2017-03-07] MEDS: NIFEdipine E.R. 90 MG TABLET (FP) PO SCH (10:29)
[2017-03-07] MEDS: LOSARTAN POTASSIUM 50 MG TABLET (FP) PO SCH (10:29)
[2017-03-07] MEDS: HYDROCHLOROTHIAZIDE 25 MG TABLET (FP) PO SCH (10:30)
[2017-03-07] MEDS: TIZANIDINE HCL PO SCH ×4 (10:30→21:57)
[2017-03-07] MEDS: PRENATAL VITAMINS W/ FOLIC ACID TABLET (FP) PO SCH (10:30)
[2017-03-07] MEDS: HYDROCORTISONE 2.5% TOPICAL CREAM 30 GM TUBE PR SCH ×2 (10:30→21:57)
[2017-03-07] MEDS: ACETAMINOPHEN 325 MG TABLET (FP) PO PRN (10:31)
[2017-03-07] MEDS: NICOTINE POLACRILEX 2 MG GUM BUC PRN ×3 (10:32→22:00)
[2017-03-07] MEDS: THIAMINE HCL 100 MG TABLET (FP) PO SCH (21:57)
[2017-03-07] MEDS: diphenhydrAMINE HCL 50 MG CAPSULE PO PRN (21:59)
[2017-03-08] MEDS: HYDROCHLOROTHIAZIDE 25 MG TABLET (FP) PO SCH (10:32)
[2017-03-08] MEDS: NIFEdipine E.R. 90 MG TABLET (FP) PO SCH (10:32)
[2017-03-08] MEDS: ALLOPURINOL 300 MG TABLET (FP) PO SCH (10:32)
[2017-03-08] MEDS: FUROSEMIDE 20 MG TABLET (FP) PO SCH (10:32)
[2017-03-08] MEDS: HYDROCORTISONE 2.5% TOPICAL CREAM 30 GM TUBE PR SCH ×2 (10:37→21:36)
[2017-03-08] MEDS: LOSARTAN POTASSIUM 50 MG TABLET (FP) PO SCH (10:57)
[2017-03-08] MEDS: TIZANIDINE HCL PO SCH ×4 (10:58→21:36)
[2017-03-08] MEDS: PRENATAL VITAMINS W/ FOLIC ACID TABLET (FP) PO SCH (10:58)
[2017-03-08] MEDS: IBUPROFEN 400 MG TABLET (FP) PO PRN ×2 (11:01→21:37)
[2017-03-08] MEDS: MAG HYDROX/AL HYDROX/SIMETH 30 ML UNIT-DOSE CUP PO PRN (18:32)
[2017-03-08] MEDS: THIAMINE HCL 100 MG TABLET (FP) PO SCH (21:36)
[2017-03-08] MEDS: diphenhydrAMINE HCL 50 MG CAPSULE PO PRN (21:37)
[2017-03-08] MEDS: NICOTINE POLACRILEX 2 MG GUM BUC PRN (21:39)
[2017-03-08] MEDS: ACETAMINOPHEN 325 MG TABLET (FP) PO PRN (23:15)
[2017-03-09] MEDS: FUROSEMIDE 20 MG TABLET (FP) PO SCH (10:44)
[2017-03-09] MEDS: ALLOPURINOL 300 MG TABLET (FP) PO SCH (10:44)
[2017-03-09] MEDS: LOSARTAN POTASSIUM 50 MG TABLET (FP) PO SCH (10:44)
[2017-03-09] MEDS: HYDROCHLOROTHIAZIDE 25 MG TABLET (FP) PO SCH (10:44)
[2017-03-09] MEDS: IBUPROFEN 400 MG TABLET (FP) PO PRN ×2 (10:44→21:39)
[2017-03-09] MEDS: NIFEdipine E.R. 90 MG TABLET (FP) PO SCH (10:44)
[2017-03-09] MEDS: PRENATAL VITAMINS W/ FOLIC ACID TABLET (FP) PO SCH (10:44)
[2017-03-09] MEDS: TIZANIDINE HCL PO SCH ×4 (10:45→21:37)
[2017-03-09] MEDS: HYDROCORTISONE 2.5% TOPICAL CREAM 30 GM TUBE PR SCH ×2 (10:46→21:38)
[2017-03-09] MEDS: NICOTINE POLACRILEX 2 MG GUM BUC PRN ×2 (10:47→21:39)
[2017-03-09] MEDS ORDERED: BENZOYL PEROXIDE 5% 60 GM GEL..GRAM. TP ONE (14:01)
[2017-03-09] MEDS: BENZOYL PEROXIDE 5% 60 GM GEL..GRAM. TP SCH (17:48)
[2017-03-09] MEDS: THIAMINE HCL 100 MG TABLET (FP) PO SCH (21:37)
[2017-03-09] MEDS: diphenhydrAMINE HCL 50 MG CAPSULE PO PRN (21:38)
--- NOTE | 2017-03-09 23:21 | PN ---
[facility] Progress Note Note: received nurse informed that patient is constipated, last bowel movement encourage magnesium citrate 300 ml prn continue rehab
[2017-03-10] MEDS: LOSARTAN POTASSIUM 50 MG TABLET (FP) PO SCH (10:20)
[2017-03-10] MEDS: PRENATAL VITAMINS W/ FOLIC ACID TABLET (FP) PO SCH (10:20)
[2017-03-10] MEDS: NIFEdipine E.R. 90 MG TABLET (FP) PO SCH (10:20)
[2017-03-10] MEDS: FUROSEMIDE 40 MG TABLET (FP) PO SCH (10:21)
[2017-03-10] MEDS: HYDROCHLOROTHIAZIDE 25 MG TABLET (FP) PO SCH (10:21)
[2017-03-10] MEDS: TIZANIDINE HCL PO SCH ×4 (10:21→21:47)
[2017-03-10] MEDS: ALLOPURINOL 300 MG TABLET (FP) PO SCH (10:21)
[2017-03-10] MEDS: BENZOYL PEROXIDE 5% 60 GM GEL..GRAM. TP SCH (10:21)
[2017-03-10] MEDS: HYDROCORTISONE 2.5% TOPICAL CREAM 30 GM TUBE PR SCH ×2 (10:22→21:52)
[2017-03-10] MEDS: NICOTINE POLACRILEX 2 MG GUM BUC PRN ×3 (10:22→21:53)
[2017-03-10] MEDS: IBUPROFEN 400 MG TABLET (FP) PO PRN ×2 (10:23→21:50)
[2017-03-10] MEDS: ACETAMINOPHEN 325 MG TABLET (FP) PO PRN (14:22)
[2017-03-10] MEDS: guaiFENesin/D-METHORPHAN HB 10 ML UNIT-DOSE CUPS PO PRN (14:22)
[2017-03-10] MEDS: THIAMINE HCL 100 MG TABLET (FP) PO SCH (21:47)
[2017-03-10] MEDS: diphenhydrAMINE HCL 50 MG CAPSULE PO PRN (21:50)
[2017-03-11] MEDS: ACETAMINOPHEN 325 MG TABLET (FP) PO PRN (03:11)
[2017-03-11] MEDS ORDERED: hydrOXYzine PAMOATE 50 MG CAPSULE (FP) PO PRN (03:12)
[2017-03-11 06:49] VITALS: BP 146/88; PULSE 91; TEMP 97.7
--- NOTE | 2017-03-11 09:20 | HP ---
Psychiatrist Admission - Data Date of interview: 03/11/17 Admission source: Discharge Note Identifying data: Patient addressing Alcohol Dependence, Vital Signs: Vital Signs - 24 hr 03/11/17 03/11/17 00:30 06:49 Temperature 97.7 F Pulse Rate 91 H Respiratory 18 20 Rate Blood Pressure 146/88 Allergies/Adverse Reactions: Allergies Allergy/AdvReac Type Severity Reaction Status Date / Time Tetanus Vaccines and Toxoid Allergy Severe Swelling Verified 02/22/17 15:28
--- NOTE | 2017-03-11 09:27 | PN ---
Psychiatric Progress Note Vital Signs: Vital Signs Period Temp Pulse Resp BP Sys/Angulo Pulse Ox Last 24 Hr 97.7 F 91 18-20 146/88 Date of Session: 03/11/17 Chief Complaint:: Discharge Note HPI: Patient addressing Alcohol Dependence, Cocaine Abuse comorbid with Substance-Induced Mood Disorder ROS: HIV, HTN, Gout were medically managed Current Medications: Active Medications Generic Name Dose Route Start Last Admin Trade Name Freq PRN Reason Stop Dose Admin Acetaminophen 650 mg 02/28/17 18:00 03/11/17 03:11 Tylenol - PO 650 mg Q4H PRN Administration PAIN Al Hydroxide/Mg Hydroxide 30 ml 02/28/17 18:00 03/08/17 18:32 Mylanta Oral Suspension - PO 30 ml Q6H PRN Administration DYSPEPSIA Allopurinol 300 mg 03/01/17 10:00 03/10/17 10:21 Zyloprim - PO 300 mg DAILY DOUGLAS Administration Benzoyl Peroxide 1 applic 03/09/17 16:30 03/10/17 10:21 Benzoyl Peroxide 5% Gel - TP 1 applic DAILY DOUGLAS Administration Diphenhydramine HCl 50 mg 02/28/17 22:00 03/10/17 21:50 Benadryl - PO 50 mg HSMR1 PRN Administration INSOMNIA Eucalyptus/Menthol/Phenol/Sorbitol 1 each 02/28/17 18:00 03/07/17 06:43 Cepastat Lozenge - MM 1 each Q4H PRN Administration SORE THROAT Furosemide 40 mg 03/10/17 10:00 03/10/17 10:21 Lasix - PO 40 mg DAILY DOUGLAS Administration Guaifenesin 10 ml 02/28/17 18:00 03/10/17 14:22 Robitussin Dm - PO 10 ml Q6H PRN Administration COUGH Hydrochlorothiazide 25 mg 03/01/17 15:42 03/10/17 10:21 Hctz - PO 25 mg DAILY DOUGLAS Administration Hydrocortisone 1 applic 03/03/17 22:00 03/10/17 21:52 Anusol 2.5% Hc Cream - PA Not Given BID DOUGLAS Hydroxyzine Pamoate 50 mg 03/11/17 03:12 03/11/17 03:29 Vistaril - PO 50 mg Q6H PRN Administration FOR ITCHING Ibuprofen 800 mg 03/01/17 12:26 03/10/17 21:50 Motrin - PO 800 mg Q8H PRN Administration PAIN Loperamide HCl 4 mg 02/28/17 18:00 Imodium - PO Q6H PRN DIARRHEA Losartan Potassium 100 mg 03/01/17 15:40 03/10/17 10:20 Cozaar - PO 100 mg DAILY DOUGLAS Administration Magnesium Citrate 300 ml 02/28/17 18:00 03/09/17 22:40 Citroma - PO 300 ml Q48H PRN Administration CONSTIPATION Magnesium Hydroxide 30 ml 02/28/17 18:00 Milk Of Magnesia - PO DAILY PRN CONSTIPATION Nicotine Polacrilex 2 mg 02/28/17 18:00 03/10/17 21:53 Nicorette Gum - BUC 2 mg Q2H PRN Administration NICOTINE REPLACEMENT RX Nifedipine 90 mg 03/01/17 10:00 03/10/17 10:20 Procardia Xl - PO 90 mg DAILY DOUGLAS Administration Non-Formulary Medication 1 tab 03/03/17 14:00 03/10/17 21:47 Tizanidine Hcl PO 1 tab QID DOUGLAS Administration Multivit/Folic Acid/Iron 1 tab 03/01/17 10:00 03/10/17 10:20 Vitamins (Sjr) - PO 1 tab DAILY DOUGLAS Administration Pseudoephedrine/Triprolidine 1 combo 02/28/17 18:00 Actifed - PO TID PRN NASAL CONGESTION Thiamine HCl 100 mg 02/28/17 22:00 03/10/17 21:47 Vitamin B1 - PO 100 mg HS DOUGLAS Administration Current Side Effect: No Lab tests ordered: Yes Lab tests reviewed: Yes Provider note:: Patient has completed this program today. He has met his treatment goals and will continue to address his issues in outpatient program at [facility].Told underwriter that from his participation in this program, he has learned the tools needed to make necessary changes to his life style in order to maintain sobriety. He is stable for discharge today Total face to face time:: 35 Mental Status Exam - Mental Status Exam Alert and Oriented to: Time, Place, Person Cognitive Function: Fair Patient Appearance: Well Groomed Mood: Hopeful, Euthymic Affect: Appropriate Patient Behavior: Cooperative Speech Pattern: Clear Voice Loudness: Normal Thought Process: Intact Thought Disorder: Not Present Hallucinations: Denies Suicidal Ideation: Denies Homicidal Ideation: Denies Insight/Judgement: Fair Sleep: Fair Appetite: Good Muscle strength/Tone: Normal Gait/Station: Normal Psychiatric Treatment Plan - Problem List (1) Alcohol dependence Current Visit: Yes (2) Cocaine abuse Current Visit: No (3) Substance induced mood disorder Current Visit: No (4) Gout Current Visit: No Qualifiers: Gout site: unspecified site Chronicity: chronic (5) HIV (human immunodeficiency virus infection) Current Visit: No (6) HTN (hypertension) Current Visit: No Qualifiers: Hypertension type: essential hypertension Qualified Code(s): I10 - Essential (primary) hypertension Initial treatment plan: Patient is discharged today and referred to [facility]
[2017-03-11] MEDS: ALLOPURINOL 300 MG TABLET (FP) PO SCH (09:56)
[2017-03-11] MEDS: LOSARTAN POTASSIUM 50 MG TABLET (FP) PO SCH (09:56)
[2017-03-11] MEDS: PRENATAL VITAMINS W/ FOLIC ACID TABLET (FP) PO SCH (09:56)
[2017-03-11] MEDS: FUROSEMIDE 40 MG TABLET (FP) PO SCH (09:56)
[2017-03-11] MEDS: HYDROCHLOROTHIAZIDE 25 MG TABLET (FP) PO SCH (09:56)
[2017-03-11] MEDS: NIFEdipine E.R. 90 MG TABLET (FP) PO SCH (09:56)
[2017-03-11] MEDS: HYDROCORTISONE 2.5% TOPICAL CREAM 30 GM TUBE PR SCH (09:57)
[2017-03-11] MEDS: BENZOYL PEROXIDE 5% 60 GM GEL..GRAM. TP SCH (09:57)
[2017-03-11] MEDS: IBUPROFEN 400 MG TABLET (FP) PO PRN (09:58)
[2017-03-11] MEDS: TIZANIDINE HCL PO SCH (10:00)
== END 2017-03-11 10:45 | disposition home or self-care (01) | DRG 772 ==
LOC: YASAS 11:42 → Y5N 18:21
PROVIDERS: ADMIT Psychiatry & Neurology Psychiatry; ATTEND Psychiatry & Neurology Psychiatry
PROC: HZ42ZZZ Group Counseling for Substance Abuse Treatment, Cognitive-Behavioral (ICD-10-PCS; principal; 2017-03-11)
DX: F10.230 Alcohol dependence with withdrawal, uncomplicated (principal); F14.10 Cocaine abuse, uncomplicated; F19.24 Other psychoactive substance dependence with psychoactive substance-induced mood disorder; Z21 Asymptomatic human immunodeficiency virus [HIV] infection status; M10.9 Gout, unspecified; I10 Essential (primary) hypertension
CPT/HCPCS: 81003; 81015